=== PATIENT | male | born 1990 | race Two or more races ===

== ENCOUNTER 2018-04-20 16:44 | Emergency (ER) | payer SELFPAY ==
[~2018-04-20] VITALS: Ht 167.6 cm; Wt 72.6 kg
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
[2018-04-20 17:31] VITALS: BP 124/68
[2018-04-20 19:06] VITALS: BP 128/72
--- NOTE | 2018-04-21 09:05 | Diagnostic Imaging Report ---
Indication: Head trauma, vomiting Technique: Continuous helical CT scanning of the head was performed without intravenous contrast material. Axial and coronal 5 mm sections were generated. Radiation dose was minimized using automated exposure control Dose: Total Dose Length Product - DLP 1379.[address] Dose Index - CTDIvol(s) 70.38 mGy. Comparison: none Findings: The ventricular system is normal in size and configuration. There is no shift of midline structures. No abnormal extra-axial fluid collections are noted. There is no evidence of intracerebral bleeding. No other abnormal high or low density areas are noted within the brain. Normal molina-white differentiation. Visualized are unremarkable. There is bilateral maxillary sinus mucosal disease. The calvarium is intact. Impression: Normal CT scan of the head without contrast material. This agrees with the preliminary interpretation provided overnight by [facility]. The CT scanner at [facility] is accredited by the [employer] and the scans are performed using protocols designed to limit radiation exposure to as low as reasonably achievable to attain images of sufficient resolution adequate for diagnostic evaluation.
--- NOTE | 2018-04-21 09:10 | Diagnostic Imaging Report ---
Indications: Trauma, pain status post fall Technique: Spiral images obtained through the facial bones. No IV contrast utilized. Multiplanar reconstructions were generated.Total dose length product 1379.52 mGycm. CTDIvol(s) 70.38 mGy. Dose reduction achieved using automated exposure control Comparison: none Findings: No acute fractures. No worrisome sinus opacification. There is mild mucosal disease of the bilateral maxillary and ethmoid sinuses. There is mild induration of the right malar region subcutaneous fat. The facial soft tissues are otherwise Unremarkable. The upper aerodigestive tract is unremarkable. Impression: Evidence of right malar region soft tissue contusion. Incidental finding of sinus disease This agrees with the preliminary interpretation provided overnight by [facility]. The CT scanner at [facility] is accredited by the [employer] and the scans are performed using protocols designed to limit radiation exposure to as low as reasonably achievable to attain images of sufficient resolution adequate for diagnostic evaluation.
== END 2018-04-20 19:30 ==
LOC: EMR 17:24
DX: S01.81XA Laceration without foreign body of other part of head, initial encounter (principal); S00.83XA Contusion of other part of head, initial encounter; M79.5 Residual foreign body in soft tissue; Y92.410 Unspecified street and highway as the place of occurrence of the external cause; Y35.893A Legal intervention involving other specified means, suspect injured, initial encounter
CPT/HCPCS: 10120; 70450; 70486; 99284